=== PATIENT | male | born 1970 | race African-American/Black ===

== ENCOUNTER 2018-01-14 07:56 | Emergency (ER) | payer BC ==
[2018-01-14] MEDS ORDERED: LOSARTAN POTASSIUM 50 MG TABLET PO ONE (08:30)
--- NOTE | 2018-01-14 09:15 | ER ---
Nurse's Notes [facility] Name: Stacie Garcia Age: 47 yrs Sex: Male : 1970 Arrival Date: 01/14/2018 Time: 07:57 Bed 15 Private MD: Diagnosis: Essential (primary) hypertension Presentation: 01/14 07:57 Presenting complaint: EMS states: Pt hx of HTN, states that he quit taking his BP med a ph few months ago and has been attempting to manage HTN w/ diet and exercise, this morning at work pt began bleeding from L nare, BP 185/133, pt denies chest pain, headache, blurred vision, or dizziness. Transition of care: patient was not received from another setting of care. Onset of symptoms was January 14, 2018. Risk Assessment: Do you want to hurt yourself or someone else? Patient reports no desire to harm self or others. Initial Sepsis Screen: Does the patient meet any 2 criteria? No. Patient's initial sepsis screen is negative. Does the patient have a suspected source of infection? No. Patient's initial sepsis screen is negative. Care prior to arrival: IV initiated. 20 GA, in the left antecubital area. 07:57 Method Of Arrival: EMS: [facility] ph 07:57 Acuity: KENDAL 2 ph Historical: - Allergies: 08:03 No Known Allergies; ph - Home Meds: 08:03 None [Active]; ph - PMHx: 08:03 Hypertension; ph - PSHx: 08:03 R arm; ph - Immunization history:: Adult Immunizations unknown. - Social history:: Smoking status: Patient/guardian denies using tobacco, Patient/guardian denies using alcohol, street drugs, The patient lives with family. - Ebola Screening: : No symptoms or risks identified at this time. - Family history:: not pertinent, pertinent for. Screenin:05 Abuse screen: Denies threats or abuse. Denies injuries from another. Nutritional ph screening: No deficits noted. Tuberculosis screening: No symptoms or risk factors identified. Fall Risk No fall in past 12 months (0 pts). No secondary diagnosis (0 pts). IV access (20 points). Ambulatory Aid- None/Bed Rest/Nurse Assist (0 pts). Gait- Normal/Bed Rest/Wheelchair (0 pts) Mental Status- Oriented to own ability (0 pts). Total Vivar Fall Scale indicates No Risk (0-24 pts). Assessment: 08:04 General: Appears in no apparent distress. comfortable, well groomed, Behavior is calm, ph cooperative, appropriate for age, Denies fever, feeling ill. Pain: Denies pain. Neuro: Level of Consciousness is awake, alert, obeys commands, Oriented to person, place, time, situation, Denies blurred vision dizziness, headache. Cardiovascular: Denies chest pain, lightheadedness, nausea, shortness of breath, Capillary refill < 3 seconds in bilateral fingers Patient's skin is warm and dry. Respiratory: Airway is patent Respiratory effort is even, unlabored, Respiratory pattern is regular, symmetrical. GI: No signs and/or symptoms were reported involving the gastrointestinal system. EENT: Nares with bleeding noted on left. Derm: Skin is intact, is healthy with good turgor, Skin is pink, warm \T\ dry. Musculoskeletal: Circulation, motion, and sensation intact. Range of motion: intact in all extremities. 09:21 Reassessment: Patient appears in no apparent distress at this time. Patient and/or ph family updated on plan of care and expected duration. Pain level reassessed. Patient is alert, oriented x 3, equal unlabored respirations, skin warm/dry/pink. ERP at bedside to speak w/ pt, pt states that he will follow-up w/ PCP tomorrow to get back on his BP meds, no further epistaxis noted, BP decreased to 170s/90s. Vital Signs: 08:02 BP 185 / 133; Pulse 84; Resp 18; Temp 97.4; Pulse Ox 98% on R/A; Weight 117.03 kg; ph Height 6 ft. 0 in. (182.88 cm); Pain 0/10; 08:55 BP 173 / 122; Pulse 80; Resp 18; Pulse Ox 98% on R/A; ph 09:05 BP 177 / 112; Pulse 78; Resp 16; Pulse Ox 97% on R/A; ph 09:38 BP 171 / 98; Pulse 81; Resp 16; Temp 97.6; Pulse Ox 99% on R/A; ph 08:02 Body Mass Index 34.99 (117.03 kg, 182.88 cm) ph ED Course: 07:57 Patient arrived in ED. ph 07:58 Rosie Luis MD is Attending Physician. ma2 08:02 Triage completed. ph 08:04 Arm band placed on. ph 08:06 Patient has correct armband on for positive identification. Placed in gown. Bed in low ph position. Call light in reach. Side rails up X 1. desk monitor on. Pulse ox on. NIBP on. Warm blanket given. 08:09 Jessica Sun RN is Primary Nurse. ph 09:25 No provider procedures requiring assistance completed. ph 09:39 IV discontinued, intact, bleeding controlled, No redness/swelling at site. Pressure ph dressing applied. Administered Medications: 08:35 Drug: Losartan 100 mg Route: PO; ph 09:39 Follow up: Response: No adverse reaction; Blood pressure is lowered ph Outcome: 09:15 Discharge ordered by . ma2 09:39 Discharged to home ambulatory, with friend. ph 09:39 Condition: improved 09:39 Discharge instructions given to patient, Instructed on discharge instructions, follow up and referral plans. Demonstrated understanding of instructions, follow-up care. 09:40 Patient left the ED. ph Signatures: Jessica Sun RN RN Rosie Luis MD MD [facility]
--- NOTE | 2018-01-14 09:15 | EDPHYS ---
Physician Documentation [facility] Name: Stacie Gracia Age: 47 yrs Sex: Male : 1970 Arrival Date: 01/14/2018 Time: 07:57 Bed 15 Private MD: ED Physician Rosie Luis HPI: 01/14 08:11 This 47 yrs old Black Male presents to ER via EMS with complaints of High Blood ma2 Pressure, Nose Bleed. 08:11 The patient has elevated blood pressure and discovered this at home. Onset: The ma2 symptoms/episode began/occurred gradually, 15 year(s) ago. Modifying factors: The symptoms are aggravated by The symptoms are alleviated by. Associated signs and symptoms: Pertinent positives: epistaxis . Severity of symptoms: At its worst the blood pressure was moderate, in the emergency department the blood pressure is unchanged. The patient has experienced similar episodes in the past. 08:11 stopped taking his 100 mg losartan 1 month ago . ma2 Historical: - Allergies: 08:03 No Known Allergies; ph - Home Meds: 08:03 None [Active]; ph - PMHx: 08:03 Hypertension; ph - PSHx: 08:03 R arm; ph - Immunization history:: Adult Immunizations unknown. - Social history:: Smoking status: Patient/guardian denies using tobacco, Patient/guardian denies using alcohol, street drugs, The patient lives with family. - Ebola Screening: : No symptoms or risks identified at this time. - Family history:: not pertinent, pertinent for. ROS: 08:11 Endocrine: Negative for neck swelling, polydipsia, polyuria, polyphagia, and marked ma2 weight changes. 08:11 ENT: Positive for nose bleed, Negative for injury or acute deformity, drainage from ear(s), foreign body sensation, hearing loss, pulling at ears, rhinorrhea, sinus congestion, dental pain, difficulty swallowing, difficulty handling secretions, acute changes. 08:11 All other systems are negative. Exam: 08:11 Constitutional: This is a well developed, well nourished patient who is awake, alert, ma2 and in no acute distress. Head/Face: Normocephalic, atraumatic. ENT: Nares patent. No nasal discharge, no septal abnormalities noted. Tympanic membranes are normal and external auditory canals are clear. Oropharynx with no redness, swelling, or masses, exudates, or evidence of obstruction, uvula midline. Mucous membranes moist. Neck: Trachea midline, no thyromegaly or masses palpated, and no cervical lymphadenopathy. Supple, full range of motion without nuchal rigidity, or vertebral point tenderness. No Meningismus. Abdomen/GI: Soft, non-tender, with normal bowel sounds. No distension or tympany. No guarding or rebound. No evidence of tenderness throughout. Back: No spinal tenderness. No costovertebral tenderness. Full range of motion. Male : Normal genitalia with no discharge or lesions. Vital Signs: 08:02 BP 185 / 133; Pulse 84; Resp 18; Temp 97.4; Pulse Ox 98% on R/A; Weight 117.03 kg; ph Height 6 ft. 0 in. (182.88 cm); Pain 0/10; 08:55 BP 173 / 122; Pulse 80; Resp 18; Pulse Ox 98% on R/A; ph 09:05 BP 177 / 112; Pulse 78; Resp 16; Pulse Ox 97% on R/A; ph 09:38 BP 171 / 98; Pulse 81; Resp 16; Temp 97.6; Pulse Ox 99% on R/A; ph 08:02 Body Mass Index 34.99 (117.03 kg, 182.88 cm) ph MDM: 08:08 Patient medically screened. ma2 08:11 Differential diagnosis: elevated BP d/t non compliant with medication, epistaxis, ma2 unlikely hypertensive crisis or SAH. 09:13 Data reviewed: vital signs, nurses notes. Data interpreted: monitoring manager: rate is 70 ma2 beats/min, Bp 170/112. Counseling: I had a detailed discussion with the patient and/or guardian regarding: the historical points, exam findings, and any diagnostic results supporting the discharge/admit diagnosis, the presence of at least one elevated blood pressure reading (>120/80) during this emergency department visit, the need for outpatient follow up. Response to treatment: the patient's symptoms have markedly improved after treatment. ED course: epistaxis stopped . Administered Medications: 08:35 Drug: Losartan 100 mg Route: PO; ph 09:39 Follow up: Response: No adverse reaction; Blood pressure is lowered ph Disposition: 01/14/18 09:15 Discharged to Home. Impression: Essential (primary) hypertension. - Condition is Stable. - Discharge Instructions: Hypertension. - Medication Reconciliation Form, Thank You Letter, Antibiotic Education, Prescription Opioid Use form. - Follow up: Private Physician; When: Tomorrow; Reason: Continuance of care. - Problem is new. - Symptoms are unchanged. Signatures: Jessica Sun RN RN Rosie Luis MD MD ma2 Corrections: (The following items were deleted from the chart) 09:40 09:15 01/14/2018 09:15 Discharged to Home. Impression: Essential (primary) ph hypertension. Condition is Stable. Forms are Medication Reconciliation Form, Thank You Letter, Antibiotic Education, Prescription Opioid Use. Follow up: Private Physician; When: Tomorrow; Reason: Continuance of care. Problem is new. Symptoms are unchanged. ma2
== END 2018-01-14 09:40 | disposition home or self-care (01) ==
LOC: ER 07:56
DX: I10 Essential (primary) hypertension (principal)
CPT/HCPCS: 99284